=== PATIENT | male | born 1955 | race Caucasian/White ===

== ENCOUNTER 2016-12-31 17:41 | Observation (INO) | payer BC ==
[2016-12-31] VITALS (9 sets, daily range): BP systolic 118–151; BP diastolic 72–90
[~2016-12-31] VITALS: Ht 188 cm; Wt 150.6 kg
[2016-12-31 18:06] LABS: BASOPHILS % (AUTO) 0 % (0-10); EOSINOPHILS # (AUTO) 0.2 10^3/uL (0.0-0.3); EOSINOPHILS % (AUTO) 2 % (0-10); LYMPHOCYTES # (AUTO) 3.4 X 10^3 (1.0-4.0); LYMPHOCYTES % (AUTO) 43 % (12-44); MEAN CORPUSCULAR HEMOGLOBIN 29 PG (25-34); MEAN CORPUSCULAR HGB CONC 33 G/DL (32-36); MEAN CORPUSCULAR VOLUME 89 FL (80-99); MEAN PLATELET VOLUME 9.6 FL (7.4-10.4); MONOCYTES # (AUTO) 0.5 X 10^3 (0.0-1.0); MONOCYTES % (AUTO) 7 % (0-12); NEUTROPHILS # (AUTO) 3.7 X 10^3 (1.8-7.8); NEUTROPHILS % (AUTO) 48 % (42-75); PLATELET COUNT 217 10^3/uL (130-400); RED BLOOD COUNT 4.75 10^6/uL (4.35-5.85); RED CELL DISTRIBUTION WIDTH 12.8 % (10.0-14.5); WHITE BLOOD COUNT 7.8 10^3/uL (4.3-11.0)
--- NOTE | 2016-12-31 18:10 | ED General ---
General Chief Complaint: Neuro-Stroke Like Symptoms Stated Complaint: CLAMMY,TIGHTNESS OF FACE Nursing Triage Note: pt states he felt "odd" "nausea" "clammy" for about 1 hour. 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 PT STATES THIS STARTED A LITTLE OVER AN HOUR AGO STATES HE HAD TIGHTNESS IN HIS FACE / BILATERAL JAWS, AND BOTH HANDS BRIEFLY FELT TINGLY NO CHEST PAIN NO SHORTNESS OF BREATH NO DIZZINESS NO HEADACHE NO VISION CHANGES NO MOTOR DEFICITS NO DIFFICULTY SWALLOWING OR TALKING NO DIFFICULTY WALKING OR PROBLEMS WITH COORDINATION TOOK A DIAZEPAM AND 325 MG ASPIRIN WHEN SYMPTOMS BEGAN PT STATES HE HAS HAD A DIABETIC FOOT ULCER ON LEFT FOOT, AND WAS OFF WORK FOR 13 WEEKS, AND WAS HAVING SEVERE ANXIETY ABOUT IT, AND NIGHTMARES, AND WAS STARTED ON DIAZEPAM. ( WAS TREATED AT [facility] AND DR. BHATIA, [employer] SURVEY WORKER) PT STATES HIS ULCER HAS BEEN HEALED X 5 WEEKS, AND HE HAS BEEN GRADUALLY INCREASING HIS ACTIVITY AND HAS BEEN BACK TO WORK--GRADUALLY INCREASING ACTIVITY THERE WELL. STATES TODAY MAYBE HE WORKED A LITTLE MORE THAN HE HAD BEEN. STATES HE HAS FELT FINE ALL DAY PT STATES HE STOPPED TAKING DIAZEPAM AROUND [facility] 12/13/16--AFTER HIS DAUGHTER TOLD HIM TO STOP IT ( SHE IS AN ANESTHESIOLOGIST) STATES HE THOUGHT HE WAS DOING OK IN REGARDS TO ANXIETY, UNTIL TODAY. PT IS DIABETIC, AND ACCUCHECK WAS 98 PT DID HAVE A TIA 04/2016--HAD LEFT SIDE NUMBNESS "FROM HEAD TO TOE" THAT LASTED 2 1/2 HOURS--KEPT OVERNIGHT AT [facility]--WORK UP NEGATIVE, AND SYMPTOMS COMPLETELY RESOLVED. PCP: AUGUSTO JENKINS IN [facility] ORE DRYER: DR. BRADSHAW AT [facility] ( DR. BRADSHAW IS PT'S SON'S [id number]) Allergies and Home Medications Allergies Coded Allergies: No Known Drug Allergies (Unverified , 04/01/12) Home Medications Aspirin 325 Mg Tablet, (Reported) Dapagliflozin Propanediol 5 Mg Tablet, #30 (Reported) Felodipine 10 Mg Tab.er.24h, #30 (Reported) Glimepiride 2 Mg Tablet, #60 (Reported) Lisinopril/Hydrochlorothiazide 1 Each Tablet, #30 (Reported) Metformin HCl 500 Mg Tab.er.24, (Reported) Constitutional: see HPI, other (FELT COLD AND CLAMMY) EENTM: see HPI (FACE FELT TIGHT) Respiratory: no symptoms reported Cardiovascular: no symptoms reported, No chest pain, No edema, No palpitations , No syncope Gastrointestinal: no symptoms reported Genitourinary: no symptoms reported Musculoskeletal: no symptoms reported Skin: no symptoms reported Psychiatric/Neurological: See HPI, Anxiety Hematologic/Lymphatic: No Symptoms Reported Immunological/Allergic: no symptoms reported Past Pjhjfer-Sqersr-Epvxbv Hx Patient Social History Alcohol Use: Rarely Uses Recreational Drug Use: No Smoking Status: Former Smoker (SMOKED FOR 1 1/2 YEARS WHEN YOUNG) 2nd Hand Smoke Exposure: No Recent Foreign Travel: No Contact w/Someone Who Travel: No Recent Infectious Disease Expo: No Recent Hopitalizations: No Immunizations Up To Date Date of Pneumonia Vaccine: Jun 01, 2007 Date of Influenza Vaccine: Jun 01, 2011 Seasonal Allergies Seasonal Allergies: No Surgeries HX Surgeries: Yes (LAP BAND/BARIATRIC SURGERY; CARDIAC CATH-NO INTERVENTION 2013; BENIGN TUMORS/CYSTS REMOVED FROM RIGHT CHEST WALL AND LEFT SHOULDER) Surgeries: Abdominal, Adenoidectomy, Cardiac, Tonsillectomy Respiratory Hx Respiratory Disorders: No Cardiovascular Hx Cardiac Disorders: Yes (QUESTIONABLE CARDIAC EVENT IN 2013/DID NOT SEEK CARE AT THE TIME--HAD A CARDIAC CATH A WEEK OR SO LATER AND WAS REPORTEDLY NORMAL--DONE AT [facility] IN 2013; PERIPHERAL ARTERY DISEASE) Cardiac Disorders: High Cholesterol, Hypertension, Peripheral Vascular Neurological Hx Neurological Disorders: Yes Neurological Disorders: Neuropathy, TIA Reproductive System Hx Reproductive Disorders: No Genitourinary Hx Genitourinary Disorders: No Gastrointestinal Hx Gastrointestinal Disorders: Yes Gastrointestinal Disorders: Chronic Constipation Musculoskeletal Hx Musculoskeletal Disorders: Yes (CHRONIC NECK PAIN--5 BULGING DISCS IN NECK) Endocrine Hx Endocrine Disorders: Yes (OBESITY) Endocrine Disorders: Diabetes, Non-Insulin dep HEENT HX ENT Disorders: No Cancer Hx Cancer: No Psychosocial Hx Psychiatric Problems: Yes (NIGHTMARES) Behavioral Health Disorders: Sleep Difficulties, Anxiety Integumentary HX Skin/Integumentary Disorder: Yes (DIABETIC FOOT ULCER --LEFT FOOT ) Blood Transfusions Hx Blood Disorders: No Physical Exam Vital Signs Vital Sign - Last 12Hours 12/31/16 17:46 Temp 98.3 Pulse 108 Resp 16 B/P (MAP) 171/85 Pulse Ox 67 O2 Delivery Room Air Capillary Refill : Less Than 3 Seconds General Appearance: No Apparent Distress, Anxious, Obese HEENT: PERRL/EOMI Neck: Full Range of Motion, Normal Inspection, Non Tender, Supple, No Carotid Bruit, No JVD Respiratory: Normal Breath Sounds, No Accessory Muscle Use, No Respiratory Distress Cardiovascular: Regular Rate, Rhythm, No Edema (WEARING BILATERAL JOSHUA HOSE), No Gallop, No JVD, No Murmur, Normal Peripheral Pulses Gastrointestinal: Normal Bowel Sounds, No Organomegaly, No Pulsatile Mass, Non Tender, Soft Back: Normal Inspection, No CVA Tenderness, No Vertebral Tenderness Extremity: Normal Capillary Refill, Normal Inspection, Normal Range of Motion, Non Tender, No Calf Tenderness, No Pedal Edema Neurologic/Psychiatric: Alert, Oriented x3, No Motor/Sensory Deficits, crane follower II- XII Norm as Tested, No Abnormal Cerebellar Tests, Other (ABLE TO STAND/TRANSFER ON HIS OWN) Skin: Normal Color, Warm/Dry Progress/Results/Core Measures Results/Orders Lab Results Laboratory Tests Test 12/31/16 17:50 12/31/16 17:52 12/31/16 20:00 01/01/17 00:40 Range/Units White Blood Count 7.8 4.3-11.0 10^3/uL Red Blood Count 4.75 4.35-5.85 10^6/uL Hemoglobin 13.9 13.3-17.7 G/DL Hematocrit 42 40-54 % Mean Corpuscular Volume 89 80-99 FL Mean Corpuscular Hemoglobin 29 25-34 PG Mean Corpuscular Hemoglobin Concent 33 32-36 G/DL Red Cell Distribution Width 12.8 10.0-14.5 % Platelet Count 217 130-400 10^3/uL Mean Platelet Volume 9.6 7.4-10.4 FL Neutrophils (%) (Auto) 48 42-75 % Lymphocytes (%) (Auto) 43 12-44 % Monocytes (%) (Auto) 7 0-12 % Eosinophils (%) (Auto) 2 0-10 % Basophils (%) (Auto) 0 0-10 % Neutrophils # (Auto) 3.7 1.8-7.8 X 10^3 Lymphocytes # (Auto) 3.4 1.0-4.0 X 10^3 Monocytes # (Auto) 0.5 0.0-1.0 X 10^3 Eosinophils # (Auto) 0.2 0.0-0.3 10^3/uL Basophils # (Auto) 0.0 0.0-0.1 10^3/uL Prothrombin Time 13.0 12.2-14.7 SEC INR Comment 1.0 0.8-1.4 Activated Partial Thromboplast Time 26 24-35 SEC Sodium Level 144 135-145 MMOL/L Potassium Level 3.6 3.6-5.0 MMOL/L Chloride Level 107 98-107 MMOL/L Carbon Dioxide Level 25 21-32 MMOL/L Anion Gap 12 5-14 MMOL/L Blood Urea Nitrogen 21 H 7-18 MG/DL Creatinine 0.99 0.60-1.30 MG/DL Estimat Glomerular Filtration Rate > 60 BUN/Creatinine Ratio 21 Glucose Level 121 H 70-105 MG/DL Calcium Level 9.1 8.5-10.1 MG/DL Magnesium Level 2.1 1.8-2.4 MG/DL Total Bilirubin 0.5 0.1-1.0 MG/DL Aspartate Amino Transf (AST/SGOT) 12 5-34 U/L Alanine Aminotransferase (ALT/SGPT) 17 0-55 U/L Alkaline Phosphatase 66 40-136 U/L Total Creatine Kinase 66 30-200 U/L Creatine Kinase MB 1.7 <6.6 NG/ML Troponin I < 0.30 < 0.30 <0.30 NG/ML B-Type Natriuretic Peptide < 10.0 <100.0 PG/ML Total Protein 7.5 6.4-8.2 G/DL Albumin 4.2 3.2-4.5 G/DL TSH [place] Testing 2.02 0.35-4.94 UIU/ML Glucometer 114 H 70-110 MG/DL Urine Color YELLOW Urine Clarity CLEAR Urine pH 5 5-9 Urine Specific [place] 1.020 1.016-1.022 Urine Protein NEGATIVE NEGATIVE Urine Glucose (UA) 4+ H NEGATIVE Urine Ketones 2+ H NEGATIVE Urine Nitrite NEGATIVE NEGATIVE Urine Bilirubin NEGATIVE NEGATIVE Urine Urobilinogen NORMAL NORMAL MG/DL Urine Leukocyte Esterase NEGATIVE NEGATIVE Urine RBC (Auto) NEGATIVE NEGATIVE Urine RBC NONE /HPF Urine WBC NONE /HPF Urine Squamous Epithelial Cells 0-2 /HPF Urine Crystals NONE /LPF Urine Bacteria NONE /HPF Urine Casts NONE /LPF Urine Mucus NEGATIVE /LPF Urine Culture Indicated NO Test 01/01/17 04:49 Range/Units White Blood Count 6.6 4.3-11.0 10^3/uL Red Blood Count 4.42 4.35-5.85 10^6/uL Hemoglobin 13.0 L 13.3-17.7 G/DL Hematocrit 39 L 40-54 % Mean Corpuscular Volume 89 80-99 FL Mean Corpuscular Hemoglobin 29 25-34 PG Mean Corpuscular Hemoglobin Concent 33 32-36 G/DL Red Cell Distribution Width 12.9 10.0-14.5 % Platelet Count 198 130-400 10^3/uL Mean Platelet Volume 9.2 7.4-10.4 FL Neutrophils (%) (Auto) 48 42-75 % Lymphocytes (%) (Auto) 42 12-44 % Monocytes (%) (Auto) 8 0-12 % Eosinophils (%) (Auto) 2 0-10 % Basophils (%) (Auto) 0 0-10 % Neutrophils # (Auto) 3.1 1.8-7.8 X 10^3 Lymphocytes # (Auto) 2.8 1.0-4.0 X 10^3 Monocytes # (Auto) 0.5 0.0-1.0 X 10^3 Eosinophils # (Auto) 0.2 0.0-0.3 10^3/uL Basophils # (Auto) 0.0 0.0-0.1 10^3/uL Sodium Level 143 135-145 MMOL/L Potassium Level 3.7 3.6-5.0 MMOL/L Chloride Level 107 98-107 MMOL/L Carbon Dioxide Level 28 21-32 MMOL/L Anion Gap 8 5-14 MMOL/L Blood Urea Nitrogen 19 H 7-18 MG/DL Creatinine 0.86 0.60-1.30 MG/DL Estimat Glomerular Filtration Rate > 60 BUN/Creatinine Ratio 22 Glucose Level 114 H 70-105 MG/DL Calcium Level 8.7 8.5-10.1 MG/DL Total Bilirubin 0.5 0.1-1.0 MG/DL Aspartate Amino Transf (AST/SGOT) 11 5-34 U/L Alanine Aminotransferase (ALT/SGPT) 12 0-55 U/L Alkaline Phosphatase 58 40-136 U/L Troponin I < 0.30 <0.30 NG/ML Total Protein 6.6 6.4-8.2 G/DL Albumin 3.7 3.2-4.5 G/DL Triglycerides Level 99 <150 MG/DL Cholesterol Level 169 < 200 MG/DL LDL Cholesterol Direct 120 1-129 MG/DL VLDL Cholesterol 20 5-40 MG/DL HDL Cholesterol 32 L 40-60 MG/DL My Orders Orders - CATHY DUNLAP DO Accucheck Stat ONCE (12/31/16 17:52) Saline Lock/Iv-Start (12/31/16 17:52) Ekg Tracing (12/31/16:52) Monitor-Rhythm Ecg Trace Only (12/31/16 17:52) Ct Head Wo-R/O Stroke (12/31/16 17:52) BNP (12/31/16 17:52) Cbc With Automated Diff (12/31/16:52) Comprehensive Metabolic Panel (12/31/16 17:52) Creatine Kinase (12/31/16 17:52) Creatine Kinase Mb (12/31/16 17:52) Magnesium (12/31/16 17:52) Protime With Inr (12/31/16 17:52) Partial Thromboplastin Time (12/31/16 17:52) Thyroid Analyzer (12/31/16 17:52) Troponin I (12/31/16 17:52) Ua Culture If Indicated (12/31/16 17:52) Chest 1 View, Ap/Pa Only (12/31/16 17:52) Vital Signs/I&O Vital Sign - Last 12Hours 12/31/16 12/31/16 12/31/16 12/31/16 17:46 20:25 21:00 21:03 Temp 98.3 98.9 Pulse 108 69 73 68 Resp 16 20 20 B/P (MAP) 171/85 131/75 Pulse Ox 67 95 98 O2 Delivery Room Air Room Air 12/31/16 12/31/16 12/31/16 12/31/16 21:15 21:45 22:00 22:15 Pulse 70 84 71 71 Resp 12 B/P (MAP) 145/74 134/79 144/90 151/72 Pulse Ox 98 94 95 93 O2 Delivery Room Air Room Air Room Air Room Air 12/31/16 12/31/16 12/31/16 12/31/16 22:30 22:45 23:00 23:00 Pulse 74 65 61 B/P (MAP) 138/74 132/76 118/75 Pulse Ox 96 95 95 95 O2 Delivery Room Air Room Air Room Air 12/31/16 01/01/17 01/01/17 01/01/17 23:30 00:00 01:00 02:00 Pulse 62 67 66 62 B/P (MAP) 137/79 123/72 116/63 121/74 Pulse Ox 96 96 95 95 O2 Delivery Room Air Room Air Room Air Room Air 01/01/17 01/01/17 03:00 04:44 Pulse 70 80 B/P (MAP) 108/70 133/80 Pulse Ox 97 O2 Delivery Room Air Room Air Blood Pressure Mean: 113 Point of Care Testing Finger Stick Blood Glucose: 114 Progress Note : Progress Note SYMPTOMS RESOLVED WITHOUT TREATMENT/INTERVENTION DURING ER STAY ECG Initial ECG Impression Time: 17:49 Initial ECG Rate: 106 Initial ECG Rhythm: S.Tach Initial ECG Comparisson: No Previous ECG Available Diagnostic Imaging Comments CT HEAD--NO ACUTE PROCESS, ARACHNOID CYST POSTERIOR FOSSA--PER RADIOLOGIST REPORT @ 1832 CXR--MILD CENTRAL REACTIVE AIRWAY CHANGES, POSSIBLY BRONCHITIS, VS PORTABLE TECHNIQUE, WITH SUBTLE BIBASILAR AND PERIHILAR ATELECTATIC INFILTRATES-- OTHERWISE NO ACUTE PROCESS--PER RADIOLOGIST REPORT @ 1832 Reviewed: Reviewed by Me Departure Communication Progress Notes 1902--SPOKE WITH DR. BOWERS, HOSPITALIST, ACCEPTS PT FOR ADMIT 1904--SPOKE WITH DR. SANCHEZ FOR CARDIOLOGY CONSULT Impression Impression: Primary Impression: Atypical chest pain Additional Impression: Paresthesia of both hands Disposition: ADMITTED INPATIENT Condition: Improved Decision to Admit Reason: Admit from ER (General) Decision to Admit/Date: December 31, 2016 Time/Decision to Admit Time: 19:05 Departure-Patient Inst. Referrals: BRIT JENKINS (PCP/Family) Primary Care Physician CATHY DUNLAP DO December 31, 2016 18:10
[2016-12-31] MEDS ORDERED: LISI1TAB10 (18:14)
[2016-12-31] MEDS ORDERED: FELO10TA3 (18:14)
[2016-12-31] MEDS ORDERED: METF-478 (18:14)
[2016-12-31] MEDS ORDERED: DAPA5TAB (18:14)
[2016-12-31] MEDS ORDERED: ASPI-808 (18:14)
[2016-12-31] MEDS ORDERED: GLIM2TAB (18:14)
--- NOTE | 2016-12-31 18:17 | Diagnostic Imaging Report ---
INDICATION: A 61-year-old male with history of stroke, altered metal status. COMPARISONS: None. FINDINGS: Midline structures are not displaced. Lateral, third, and fourth ventricles are normal in size, shape, and anatomic position. There is no evidence of mass, mass effect, hydrocephalus, or hemorrhage. Vyas-white differentiation is normal. There is no sulcal effacement. There are no abnormal extra-axial fluid collections or hemorrhage. Basilar cisterns appear normal. There is an incidental posterior fossa arachnoid cyst. Sinuses, orbits, and mastoid air cells are normal. Bone windows show no calvarial changes. IMPRESSION: Unremarkable nonenhanced CT brain. If symptoms warrant or persist, an MRI brain may be of further value. Dictated by: Dictated on workstation # [id number]
--- NOTE | 2016-12-31 18:21 | Diagnostic Imaging Report ---
INDICATION: A 61-year-old male with chest pain, shortness of breath, clammy, altered sensorium. COMPARISONS: None. FINDINGS: Single view of the chest shows the cardiac contour is normal. There is prominence of central lung markings with peribronchial cuffing. There is some perihilar and bibasilar atelectasis, but no significant consolidations. There is no effusion or pneumothorax. Cardiac contour is normal. Soft tissues and bony thorax are grossly unremarkable. IMPRESSION: Some central reactive airway changes such as bronchitis with some minimal perihilar and bibasilar atelectatic infiltrates, but no significant consolidations. Findings are accentuated by the portable technique. Dictated by: Dictated on workstation # [id number]
[2016-12-31 18:22] LABS: ALANINE AMINOTRANSFERASE 17 U/L (0-55); ALBUMIN 4.2 G/DL (3.2-4.5); ANION GAP 12 MMOL/L (5-14); ASPARTATE AMINO TRANSFERASE 12 U/L (5-34); BILIRUBIN,TOTAL 0.5 MG/DL (0.1-1.0); BLOOD UREA NITROGEN 21 MG/DL (7-18); BUN/CREATININE RATIO 21; CALCIUM 9.1 MG/DL (8.5-10.1); CARBON DIOXIDE 25 MMOL/L (21-32); CHLORIDE 107 MMOL/L (98-107); CREATINE KINASE 66 U/L (30-200); CREATININE SERUM 0.99 MG/DL (0.60-1.30); GFR ESTIMATED > 60; GLUCOSE 121 MG/DL (70-105); MAGNESIUM 2.1 MG/DL (1.8-2.4); POTASSIUM 3.6 MMOL/L (3.6-5.0); SODIUM 144 MMOL/L (135-145); TOTAL PROTEIN 7.5 G/DL (6.4-8.2)
[2016-12-31 18:44] LABS: TROPONIN I < 0.30 NG/ML (<0.30)
[2016-12-31 20:08] LABS: BILIRUBIN,URINE NEGATIVE (NEGATIVE); KETONES,URINE 2+ (NEGATIVE); LEUKOCYTE ESTERASE ,URINE NEGATIVE (NEGATIVE); NITRITE,URINE NEGATIVE (NEGATIVE); PH,URINE 5 (5-9); PROTEIN,URINE NEGATIVE (NEGATIVE); UROBILINOGEN,URINE NORMAL (NORMAL)
[2016-12-31 20:15] LABS: SQUAMOUS EPITHELIAL CELL,UR 0-2 /HPF
--- NOTE | 2016-12-31 21:30 | Consultation-Cardiology ---
HPI-Cardiology Cardiology Consultation Date of Consultation 12/31/16 Date of Admission Indication: chest pain HPI 61 years old gentleman with history of TIA in the past, was working and lifting when he did not feel well, expressed that he felt some tightness in his jaw and lower face, persisted until he came to the emergency room, by the time he arrived to the emergency room he was feeling better, denied any numbness, no chest pain, was feeling anxious, no shortness of breath or syncope. Patient reported that 6-7 years ago underwent a cardiac catheterization after failing a stress test and the workup was negative, he has been treated recently for diabetic foot ulcer and has been healed for the last 3-4 weeks. Had history of TIA with paresthesia on his left side 6-7 years ago and underwent extensive workup and reported that he had herniated disks in his neck. 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 Alcohol Use: Rarely Uses Recreational Drug Use: No Smoking Status: Former Smoker (SMOKED FOR 1 1/2 YEARS WHEN YOUNG) 2nd Hand Smoke Exposure: No Recent Foreign Travel: No Recent Infectious Disease Expo: No Recent Hopitalizations: No Immunizations Up To Date Date of Pneumonia Vaccine: Jun 01, 2007 Date of Influenza Vaccine: Jun 01, 2011 Past Medical History past medical history as discussed below Family Medical History Family Medical Hx noncontributory Constitutional: see HPI, weakness EENTM: no symptoms reported, see HPI Respiratory: no symptoms reported, see HPI Cardiovascular: no symptoms reported, see HPI Gastrointestinal: no symptoms reported, see HPI Genitourinary: no symptoms reported, see HPI Musculoskeletal: no symptoms reported, see HPI Skin: no symptoms reported, see HPI Psychiatric/Neurological: No Symptoms Reported, See HPI Reviewed Test Results Reviewed Test Results Lab Laboratory Tests Test 12/31/16 17:50 12/31/16 17:52 12/31/16 20:00 Range/Units White Blood Count 7.8 4.3-11.0 10^3/uL Red Blood Count 4.75 4.35-5.85 10^6/uL Hemoglobin 13.9 13.3-17.7 G/DL Hematocrit 42 40-54 % Mean Corpuscular Volume 89 80-99 FL Mean Corpuscular Hemoglobin 29 25-34 PG Mean Corpuscular Hemoglobin Concent 33 32-36 G/DL Red Cell Distribution Width 12.8 10.0-14.5 % Platelet Count 217 130-400 10^3/uL Mean Platelet Volume 9.6 7.4-10.4 FL Neutrophils (%) (Auto) 48 42-75 % Lymphocytes (%) (Auto) 43 12-44 % Monocytes (%) (Auto) 7 0-12 % Eosinophils (%) (Auto) 2 0-10 % Basophils (%) (Auto) 0 0-10 % Neutrophils # (Auto) 3.7 1.8-7.8 X 10^3 Lymphocytes # (Auto) 3.4 1.0-4.0 X 10^3 Monocytes # (Auto) 0.5 0.0-1.0 X 10^3 Eosinophils # (Auto) 0.2 0.0-0.3 10^3/uL Basophils # (Auto) 0.0 0.0-0.1 10^3/uL Prothrombin Time 13.0 12.2-14.7 SEC INR Comment 1.0 0.8-1.4 Activated Partial Thromboplast Time 26 24-35 SEC Sodium Level 144 135-145 MMOL/L Potassium Level 3.6 3.6-5.0 MMOL/L Chloride Level 107 98-107 MMOL/L Carbon Dioxide Level 25 21-32 MMOL/L Anion Gap 12 5-14 MMOL/L Blood Urea Nitrogen 21 H 7-18 MG/DL Creatinine 0.99 0.60-1.30 MG/DL Estimat Glomerular Filtration Rate > 60 BUN/Creatinine Ratio 21 Glucose Level 121 H 70-105 MG/DL Calcium Level 9.1 8.5-10.1 MG/DL Magnesium Level 2.1 1.8-2.4 MG/DL Total Bilirubin 0.5 0.1-1.0 MG/DL Aspartate Amino Transf (AST/SGOT) 12 5-34 U/L Alanine Aminotransferase (ALT/SGPT) 17 0-55 U/L Alkaline Phosphatase 66 40-136 U/L Total Creatine Kinase 66 30-200 U/L Creatine Kinase MB 1.7 <6.6 NG/ML Troponin I < 0.30 <0.30 NG/ML B-Type Natriuretic Peptide < 10.0 <100.0 PG/ML Total Protein 7.5 6.4-8.2 G/DL Albumin 4.2 3.2-4.5 G/DL TSH [place] Testing 2.02 0.35-4.94 UIU/ML Glucometer 114 H 70-110 MG/DL Urine Color YELLOW Urine Clarity CLEAR Urine pH 5 5-9 Urine Specific [place] 1.020 1.016-1.022 Urine Protein NEGATIVE NEGATIVE Urine Glucose (UA) 4+ H NEGATIVE Urine Ketones 2+ H NEGATIVE Urine Nitrite NEGATIVE NEGATIVE Urine Bilirubin NEGATIVE NEGATIVE Urine Urobilinogen NORMAL NORMAL MG/DL Urine Leukocyte Esterase NEGATIVE NEGATIVE Urine RBC (Auto) NEGATIVE NEGATIVE Urine RBC NONE /HPF Urine WBC NONE /HPF Urine Squamous Epithelial Cells 0-2 /HPF Urine Crystals NONE /LPF Urine Bacteria NONE /HPF Urine Casts NONE /LPF Urine Mucus NEGATIVE /LPF Urine Culture Indicated NO Physical Exam Vital Signs Vital Sign - Last 12Hours 12/31/16 17:46 Temp 98.3 Pulse 108 Resp 16 B/P (MAP) 171/85 Pulse Ox 67 O2 Delivery Room Air Capillary Refill : Less Than 3 Seconds General Appearance: No Apparent Distress, WD/WN Eyes: Bilateral Eye EOMI, Bilateral Eye Normal Inspection, Bilateral Eye PERRL HEENT: PERRL/EOMI, TMs Normal, Normal ENT Inspection, Pharynx Normal Neck: Full Range of Motion, Normal Inspection, Non Tender, Supple, Carotid Bruit Respiratory: Chest Non Tender, Lungs Clear, Normal Breath Sounds, No Accessory Muscle Use, No Respiratory Distress Cardiovascular: Regular Rate, Rhythm, No Edema, No Gallop, No JVD, No Murmur, Normal Peripheral Pulses Gastrointestinal: Normal Bowel Sounds, No Organomegaly, No Pulsatile Mass, Non Tender, Soft Back: Normal Inspection, No CVA Tenderness, No Vertebral Tenderness Extremity: Normal Capillary Refill, Normal Inspection, Normal Range of Motion, Non Tender, No Calf Tenderness, No Pedal Edema, Other (slightly diminished pulse on the right foot) Neurologic/Psychiatric: Alert, Oriented x3, No Motor/Sensory Deficits, Normal Mood/Affect Skin: Normal Color, Warm/Dry Lymphatic: No Adenopathy A/P-Cardiology Admission Diagnosis Atypical chest pain Hypertension Diabetes mellitus Obstructive sleep apnea Assessment/Plan Jaw pain, atypical chest pain, EKG did not show any acute abnormality, cardiac enzymes has been negative. Patient had a cardiac catheterization reportedly was normal done about 6-7 years ago, no recent workup was done, I discussed with him the management plan, I will continue monitoring him overnight, offered him to have a stress test in the morning and he prefer to wait and have it done as an outpatient with Dr. Vazquez. History of multiple herniated discs in his neck, has been followed by primary care physician. Did not require surgery. Hypertension, continue home medication and monitor blood pressure Diabetes mellitus, followed and managed by primary care physician Diabetic foot ulcer on the left second toe, healed about 3-4 weeks ago, patient has slightly diminished pulse on the right side. Patient is reporting normal lipids COPD/obstructive sleep apnea, using C Pap at night BMI 41. BRET SANCHEZ MD December 31, 2016 21:30
[2016-12-31] MEDS ORDERED: NITROGLYCERIN SUBLINGUAL 0.4 MG TAB (NITROSTAT) SL PRN (22:00)
[2016-12-31] MEDS ORDERED: morphine INJ 4 MG/ML 1 ML (VIAL/SYRINGE) IV PRN (22:00)
[2017-01-01] VITALS (8 sets, daily range): BP systolic 108–133; BP diastolic 63–80
[2017-01-01 04:53] LABS: BASOPHILS % (AUTO) 0 % (0-10); EOSINOPHILS # (AUTO) 0.2 10^3/uL (0.0-0.3); EOSINOPHILS % (AUTO) 2 % (0-10); LYMPHOCYTES # (AUTO) 2.8 X 10^3 (1.0-4.0); LYMPHOCYTES % (AUTO) 42 % (12-44); MEAN CORPUSCULAR HEMOGLOBIN 29 PG (25-34); MEAN CORPUSCULAR HGB CONC 33 G/DL (32-36); MEAN CORPUSCULAR VOLUME 89 FL (80-99); MEAN PLATELET VOLUME 9.2 FL (7.4-10.4); MONOCYTES # (AUTO) 0.5 X 10^3 (0.0-1.0); MONOCYTES % (AUTO) 8 % (0-12); NEUTROPHILS # (AUTO) 3.1 X 10^3 (1.8-7.8); NEUTROPHILS % (AUTO) 48 % (42-75); PLATELET COUNT 198 10^3/uL (130-400); RED BLOOD COUNT 4.42 10^6/uL (4.35-5.85); RED CELL DISTRIBUTION WIDTH 12.9 % (10.0-14.5); WHITE BLOOD COUNT 6.6 10^3/uL (4.3-11.0)
[2017-01-01 05:13] LABS: ALANINE AMINOTRANSFERASE 12 U/L (0-55); ALBUMIN 3.7 G/DL (3.2-4.5); ANION GAP 8 MMOL/L (5-14); ASPARTATE AMINO TRANSFERASE 11 U/L (5-34); BILIRUBIN,TOTAL 0.5 MG/DL (0.1-1.0); BLOOD UREA NITROGEN 19 MG/DL (7-18); BUN/CREATININE RATIO 22; CALCIUM 8.7 MG/DL (8.5-10.1); CARBON DIOXIDE 28 MMOL/L (21-32); CHLORIDE 107 MMOL/L (98-107); CHOLESTEROL 169 MG/DL (< 200); CREATININE SERUM 0.86 MG/DL (0.60-1.30); DIRECT LDL 120 MG/DL (1-129); GFR ESTIMATED > 60; GLUCOSE 114 MG/DL (70-105); POTASSIUM 3.7 MMOL/L (3.6-5.0); SODIUM 143 MMOL/L (135-145); TOTAL PROTEIN 6.6 G/DL (6.4-8.2); TRIGLYCERIDES 99 MG/DL (<150); VLDL CHOLESTEROL 20 MG/DL (5-40)
[2017-01-01 05:20] LABS: TROPONIN I < 0.30 NG/ML (<0.30)
[2017-01-01] MEDS ORDERED: LACT1CAP84 PO (05:58)
[2017-01-01] MEDS ORDERED: DOCU250C11 PO (05:58)
[2017-01-01] MEDS ORDERED: DAPA5TAB PO (05:58)
[2017-01-01] MEDS ORDERED: ASPI-808 PO (05:58)
[2017-01-01] MEDS ORDERED: FELO10TA3 PO (05:58)
[2017-01-01] MEDS ORDERED: LISI1TAB10 PO (05:58)
[2017-01-01] MEDS ORDERED: METF500T PO (05:58)
[2017-01-01] MEDS ORDERED: GLIM2TAB PO (05:58)
--- NOTE | 2017-01-01 07:48 | Cardiology Progress Note ---
Subjective Subjective/Events-last exam patient is laying down in bed, feeling well, denied any further episode of chest pain or shortness of breath. We had a long discussion about the treatment option I offered him to do a stress test while he is here, patient requested to be discharged and he will do it with Dr. Vazquez next week. Review of Systems General: No Chills, No Night Sweats, No Fatigue, No Malaise, No Appetite, No Other HEENT: No Head Aches, No Visual Changes, No Eye Pain, No Ear Pain, No Dysphasia , No Sinus Congestion, No Post Nasal Drip, No Sore Throat, No Other Pulmonary: No Dyspnea, No Cough, No Pleuritic Chest Pain, No Other Cardiovascular: No: Chest Pain, Edema, Lt Headedness, Orthopnea, Other, Palpitations, Paroxysmal Noc. Dyspnea Objective-Cardiology Exam Last Set of Vital Signs Vital Signs 12/31/16 01/01/17 01/01/17 20:25 04:00 04:44 Temp 98.9 Pulse 80 Resp 18 B/P (MAP) 133/80 Pulse Ox 98 O2 Delivery Room Air Capillary Refill : Less Than 3 Seconds General: Alert, Oriented X3, Cooperative HEENT: Atraumatic, PERRLA Neck: Supple, No JVD, No Thyromegaly Lungs: Clear to Auscultation, Normal Air Movement Heart: Regular Rate, Normal S1, Normal S2, No Murmurs Abdomen: Normal Bowel Sounds, Soft, No Tenderness, No Hepatosplenomegaly, No Masses Extremities: No Clubbing, No Cyanosis, No Edema, Normal Pulses, No Tenderness/ Swelling Skin: No Rashes, No Breakdown, No Significant Lesion Neuro: Normal Gait, Normal Speech, Strength at 5/5 X4 Ext, Normal Tone, Sensation Intact Psych/Mental Status: Mental Status NL, Mood NL Results Lab Laboratory Tests 12/31/16 17:50 01/01/17 04:49 A/P-Cardiology Admission Diagnosis Atypical chest pain Hypertension Diabetes mellitus Obstructive sleep apnea Assessment/Plan Jaw pain, atypical chest pain, EKG did not show any acute abnormality, cardiac enzymes has been negative. Patient had a cardiac catheterization reportedly was normal done about 6-7 years ago, EKG and cardiac enzymes has been normal overnight, offered him to have a stress test and he prefer to wait and have it done as an outpatient with Dr. Vazquez. History of multiple herniated discs in his neck, has been followed by primary care physician. Did not require surgery. Hypertension, continue home medication and monitor blood pressure Diabetes mellitus, followed and managed by primary care physician Diabetic foot ulcer on the left second toe, healed about 3-4 weeks ago, patient has slightly diminished pulse on the right side. Patient is reporting normal lipids COPD/obstructive sleep apnea, using C Pap at night BMI 41. BRET SANCHEZ MD January 01, 2017 07:48
[2017-01-01] MEDS ORDERED: ASPIRIN E.C. 325 MG (ECOTRIN) TABLET PO SCH (09:00)
[2017-01-01] MEDS ORDERED: ULTIMATE FLORA PO (09:13)
[2017-01-01] MEDS ORDERED: DIAZ5TAB3 PO (09:15)
--- NOTE | 2017-01-01 10:20 | Diagnostic Imaging Report ---
EXAMINATION: PA and lateral chest obtained at 513h. Indication: Chest pain Heart size is within normal limits and stable compared to 12/31/16. The perihilar markings do not seem quite as prominent as on the prior exam. The lungs are generally clear and well aerated. There is no sign of failure, pneumonia or a pleural effusion. The mediastinum is not widened. The osseous structures are intact. IMPRESSION: There is no evidence for active disease. Dictated by: Dictated on workstation # [id number]
--- NOTE | 2017-01-01 10:43 | Short Stay Summary-Hospitalist ---
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 Dr. Lacy states pt can be DC. Pt states issue started when his bulging disc started hurting him while lifting at work. Patient Interview: Pt states that lifting a heavy box may have been the cause of his current issue. Pt states his face started tingling and he had nausea after his back began to have pain. Pt states he gave himself an anxiety attack at this time because of his hx of health issues. Pt states he took Diazepam and Aspirin then. Pt states he is a 36 year diabetic. Pt states he has cardiac issues. Pt states he has started wound care with Dr. Lin in [place], [place]. Pt states he has begun to have feeling in his feet now. Pt states he has been out of wound care for 5 weeks. Pt states his PCP is Dr. Alberto Mccord and Dr. Jhon[facility] Vaz[facility] Cardiology. Physical exam was stable. Pt states he feels normal currently. Scribed by Stevan Hebert under the direct supervision of Dr. Bowers. 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 Alcohol Use: Denies Use Recreational Drug Use: No Smoking Status: Former Smoker 2nd Hand Smoke Exposure: No Physical Abuse Screen: No Sexual Abuse: No Recent Foreign Travel: Yes Contact w/other who traveled: Yes Recent Hopitalizations: No Recent Infectious Disease Expo: No Immunizations Up To Date Date of Pneumonia Vaccine: Jun 01, 2007 Date of Influenza Vaccine: Jun 01, 2011 Seasonal Allergies Seasonal Allergies: No Surgeries HX Surgeries: Yes (LAP BAND/BARIATRIC SURGERY; CARDIAC CATH-NO INTERVENTION 2013; BENIGN TUMORS/CYSTS REMOVED FROM RIGHT CHEST WALL AND LEFT SHOULDER) Surgeries: Abdominal, Adenoidectomy, Cardiac, Tonsillectomy Respiratory Hx Respiratory Disorders: No Cardiovascular Hx Cardiovascular Disorders: Yes (QUESTIONABLE CARDIAC EVENT IN 2013/DID NOT SEEK CARE AT THE TIME--HAD A CARDIAC CATH A WEEK OR SO LATER AND WAS REPORTEDLY NORMAL--DONE AT [facility] IN 2014; PERIPHERAL ARTERY DISEASE) Cardiac Disorders: High Cholesterol, Hypertension, Peripheral Vascular Neurological Hx Neurological Disorders: Yes Neurological Disorders: Neuropathy, TIA Reproductive System Hx Reproductive Disorders: No Genitourinary Hx Genitourinary Disorders: No Gastrointestinal Hx Gastrointestinal Disorders: Yes Gastrointestinal Disorders: Chronic Constipation Musculoskeletal Hx Musculoskeletal Disorders: Yes (CHRONIC NECK PAIN--5 BULGING DISCS IN NECK) Musculoskeletal Disorders: Chronic Back Pain Endocrine Hx Endocrine Disorders: Yes (OBESITY) Endocrine Disorders: Diabetes, Non-Insulin dep HEENT HX ENT Disorders: No Cancer Hx Cancer: No Psychosocial Hx Psychiatric Problems: Yes (NIGHTMARES) Behavioral Health Disorders: Sleep Difficulties, Anxiety Integumentary HX Skin/Integumentary Disorder: Yes (DIABETIC FOOT ULCER --LEFT FOOT ) Blood Transfusions Hx Blood Disorders: No Review of Systems Constitutional: see HPI EENTM: no symptoms reported Respiratory: no symptoms reported Cardiovascular: chest pain Gastrointestinal: nausea Genitourinary: no symptoms reported Musculoskeletal: back pain Skin: no symptoms reported Psychiatric/Neurological: Anxiety All Other Systems Reviewed Negative Unless Noted: Yes Physical Exam Physical Exam Vital Signs Vital Sign - Last 12Hours 12/31/16 17:46 Temp 98.3 Pulse 108 Resp 16 B/P (MAP) 171/85 Pulse Ox 67 O2 Delivery Room Air Capillary Refill : Less Than 3 Seconds General Appearance: No Apparent Distress, WD/WN, Obese Eyes: Bilateral Eye Normal Inspection, Bilateral Eye PERRL HEENT: PERRL/EOMI, Normal ENT Inspection, Pharynx Normal Neck: Full Range of Motion, Normal Inspection, Non Tender, Supple, Carotid Bruit Respiratory: Chest Non Tender, Lungs Clear, Normal Breath Sounds, No Accessory Muscle Use, No Respiratory Distress Cardiovascular: Regular Rate, Rhythm, No Edema, No Gallop, No JVD, No Murmur, Normal Peripheral Pulses Gastrointestinal: Normal Bowel Sounds, No Organomegaly, No Pulsatile Mass, Non Tender, Soft Back: Normal Inspection, No CVA Tenderness, No Vertebral Tenderness Extremity: Normal Capillary Refill, Normal Inspection, Normal Range of Motion, Non Tender, No Calf Tenderness, No Pedal Edema Neurologic/Psychiatric: Alert, Oriented x3, No Motor/Sensory Deficits, Normal Mood/Affect Skin: Normal Color, Warm/Dry Lymphatic: No Adenopathy Results Results/Procedures Lab Laboratory Tests 12/31/16 17:50 01/01/17 04:49 Short Stay Diagnosis Discharge Diagnosis-Short Stay Admission Diagnosis Assessment: Chest pain of unknown source but does not appear to be cardiac in origin Peripheral vascular disease Status post left foot ulcer diabetic type with PVD healed after 13 weeks of wound care at [facility] Hypertension Hyperlipidemia Former smoker Cervical spine disease with herniated disc Anxiety with panic attacks Final Discharge Diagnosis Assessment: Chest pain of unknown source but does not appear to be cardiac in origin Peripheral vascular disease Status post left foot ulcer diabetic type with PVD healed after 13 weeks of wound care at [facility] Hypertension Hyperlipidemia Former smoker Cervical spine disease with herniated disc Anxiety with panic attacks Conclusion Plan Plan: Discharge home Resume all home meds Follow-up with Dr. Vazquez cardiology for stress test Monitor closely Clinical Quality Measures DVT/VTE Risk/Contraindication: Risk Factor Score Per Nursin RFS Level Per Nursing on Admit: 4+=Very High JANY BOWERS DO January 01, 2017 10:43
[2017-01-01] MEDS ORDERED: DIAZEPAM 5 MG (VALIUM) TABLET PO PRN (10:45)
[2017-01-01] MEDS ORDERED: ULTIMATE FLORA PO SCH (16:00)
[2017-01-01] MEDS ORDERED: DOCUSATE SODIUM 250 MG PO SCH (16:00)
[2017-01-01] MEDS ORDERED: metFORMIN 500 MG (GLUCOPHAGE) TAB PO SCH (17:00)
[2017-01-01] MEDS ORDERED: GLIMEPIRIDE 2 MG (AMARYL) TAB PO SCH (17:00)
[2017-01-02] MEDS ORDERED: HYDROCHLOROTHIAZIDE 25 MG (HCTZ) TAB PO SCH (09:00)
[2017-01-02] MEDS ORDERED: FELODIPINE 5 MG PO SCH (09:00)
[2017-01-02] MEDS ORDERED: lisINopril 20 MG (ZESTRIL) TAB PO SCH (09:00)
[2017-01-02] MEDS ORDERED: NON-FORMULARY MEDICATION 1 EA EA (Dapagliflozin Propanediol (Farxiga) 5 MG) PO SCH (09:00)
[2017-01-02] MEDS ORDERED: ASPIRIN 325 MG (5 GR) TABLET PO SCH (09:00)
== END 2017-01-01 10:42 | disposition home or self-care (01) ==
LOC: EDUNIT# 17:41 → ER 17:42 → ICU 19:05 → UNDOADMOB 19:05 → ICU 20:30 → UNDODISOB 01-01 11:40
PROVIDERS: ADMIT Internal Medicine; ATTEND Internal Medicine
DX: R07.9 Chest pain, unspecified (principal); I73.9 Peripheral vascular disease, unspecified; E11.9 Type 2 diabetes mellitus without complications; I10 Essential (primary) hypertension; E78.5 Hyperlipidemia, unspecified; Z87.891 Personal history of nicotine dependence; M50.20 Other cervical disc displacement, unspecified cervical region; F41.0 Panic disorder [episodic paroxysmal anxiety]; E66.9 Obesity, unspecified; Z68.41 Body mass index [BMI] 40.0-44.9, adult; J44.9 Chronic obstructive pulmonary disease, unspecified; G47.33 Obstructive sleep apnea (adult) (pediatric)
CPT/HCPCS: 36415; 70450; 71010; 71020; 80053; 80061; 81000; 82550; 82553; 82962; 83735; 83880; 84443; 84484; 85025; 85610; 85730; 93005; 93041; G0378

== ENCOUNTER → 2019-03-10 | Outpatient (CLI) | payer BC ==
[~2019-03-10] MED LIST: ASPI-808; ASPI-808 PO; DAPA5TAB; DAPA5TAB PO; DIAZ5TAB3 PO; DOCU250C11 PO; FELO10TA3; FELO10TA3 PO; GLIM2TAB; GLIM2TAB PO; LACT1CAP84 PO; LISI1TAB10; LISI1TAB10 PO; METF-478; METF500T PO; ULTIMATE FLORA PO
--- NOTE | 2019-03-10 10:52 | Diagnostic Imaging Report ---
PROCEDURE: US carotid duplex, bilateral. TECHNIQUE: Multiple real-time grayscale images were obtained over the carotid arteries in various projections, bilaterally. Additional spectral analysis and color Doppler duplex images were also obtained. INDICATION: Optic nerve atrophy right eye. FINDING: There is minimal plaquing in the right carotid bulb. The velocities are normal bilaterally. No velocity elevation or stenosis is seen. Both vertebral arteries show antegrade flow. IMPRESSION: No evidence of a hemodynamically significant stenosis. Parameters based on the consensus panel Vyas-Scale and Doppler ultrasound criteria published June 2003, Radiology, Volume 229. DOPPLER (peak systolic velocity M/S Right Left CCA .84 .73 ICA Proximal .89 .71 ICA Mid .94 .84 ICA Distal 1.1 1.1 RATIO 1.4 1.5 ECA 1.5 1.2 VERT .48 .43 Dictated by: Dictated on workstation # [id number]
== END ==
LOC: RAD 09:42
PROVIDERS: ATTEND Specialist
DX: H34.11 Central retinal artery occlusion, right eye (principal); H47.211 Primary optic atrophy, right eye
CPT/HCPCS: 93880

== ENCOUNTER 2021-04-24 10:09 | Outpatient (CLI) | payer MEDICARE, MEDICAID ==
[~2021-04-24] VITALS: Ht 188 cm; Wt 136.0 kg
[~2021-04-24 10:09] MED LIST changes: -DIAZ5TAB3 PO; +DIAZ5TAB49 PO; -FELO10TA3; -FELO10TA3 PO; +FELO10TA41; +FELO10TA41 PO; -GLIM2TAB; -GLIM2TAB PO; +GLIM2TAB4; +GLIM2TAB4 PO; -LISI1TAB10; -LISI1TAB10 PO; +LISI1TAB26; +LISI1TAB26 PO
[2021-04-24 10:10] VITALS: BP 118/66
[2021-04-24 10:18] VITALS: BP 118/66
[2021-04-24] MEDS ORDERED: EPINEPHrine INJECTION 1 MG/ML AMP IM PRN (10:45)
[2021-04-24] MEDS ORDERED: diphenhydrAMINE 50 MG/ML INJ (BENADRYL) IV PRN (10:45)
[2021-04-24] MEDS ORDERED: ACETAMINOPHEN 500 MG TAB (TYLENOL) PO PRN (10:45)
[2021-04-24] MEDS ORDERED: ONDANSETRON 4 MG/2 ML (SDV) Z0FRAN IV PRN (10:45)
[2021-04-24] MEDS ORDERED: CASIRIVIMAB/IMDEVIMAB 1,200 MG in NS (IVPB) 250 ML IV ONE (10:45)
[2021-04-24 11:33] VITALS: BP 102/52
== END 2021-04-24 11:55 | disposition home or self-care (01) ==
LOC: INFUSION 10:09
PROVIDERS: ATTEND Nurse Practitioner Family
DX: Z23 Encounter for immunization (principal); U07.1 COVID-19